=== PATIENT | female | born 1980 | race American Indian/Alaskan Native ===

== ENCOUNTER 2017-11-08 06:54 | Emergency (ER) | payer OTHER ==
[2017-11-08 06:55] VITALS: BMI 32.5
[2017-11-08 07:15] VITALS: BP 136/83; PULSE 70; RESP 17; TEMP 98.2; O2SAT 96
--- NOTE | 2017-11-08 07:52 | ED PDOC ---
Arrival/HPI - General Chief Complaint: Lower Extremity Problem/Injury Time Seen by Provider: 11/08/17 07:15 Historian: Patient - History of Present Illness Narrative History of Present Illness (Text): 11/08/17 07:46 37 year old female, with past medical history of menometrorhagia, uterine fibroids and colitis, presents to the Emergency department complaining of right foot discomfort and swelling since 3 days. Patient states worsening discomfort with movement of the first two toes, making ambulation difficult. Patient worries, discomfort may have been secondary to her work-out exercises but denies any trauma to the area. 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 Patient denies any fever, chills, nausea, vomiting, diarrhea, abdominal pain, chest pain, shortness of breath, or any other complaints. Patient presents to the Emergency department for medical evaluation. PMD: Dr. Barrett Time/Duration: < week (3 days) Symptom Onset: Gradual Symptom Course: Unchanged Quality: Aching Past Medical History - Provider Review Nursing Documentation Reviewed: Yes - Past History Past History: Non-Contributing - Infectious Disease Hx of Infectious Diseases: None - Tetanus Immunization Tetanus Immunization: Unknown - Cardiac Hx Cardiac Disorders: No - Pulmonary Hx Respiratory Disorders: No - Neurological Hx Neurological Disorder: No - HEENT Hx HEENT Disorder: No - Renal Hx Renal Disorder: No - Endocrine/Metabolic Hx Endocrine Disorders: No - Hematological/Oncological Hx Blood Disorders: Yes Hx Anemia: Yes - Integumentary Hx Dermatological Disorder: No - Musculoskeletal/Rheumatological Hx Musculoskeletal Disorders: No - Gastrointestinal Hx Gastrointestinal Disorders: Yes Hx Colitis: Yes - Genitourinary/Gynecological Hx Genitourinary Disorders: No - Psychiatric Hx Emotional Abuse: No Hx Physical Abuse: No Hx Substance Use: No - Surgical History Other/Comment: REMOVAL OF CYST ON THE VOCAL CORDS. FIBROID REMOVAL 11/2015 - Anesthesia Hx Anesthesia: Yes Hx Anesthesia Reactions: No Hx Malignant Hyperthermia: No - Suicidal Assessment Feels Threatened In Home Enviroment: No Family/Social History - Physician Review Nursing Documentation Reviewed: Yes Family/Social History: No Known Family HX Smoking Status: Former Smoker Hx Alcohol Use: Yes (SOCIALLY) Hx Substance Use: No Hx Substance Use Treatment: No Allergies/Home Meds Allergies/Adverse Reactions: Allergies No Known Allergies Allergy (Verified 11/09/15 11:25) Home Medications: Home Meds Medication Instructions Recorded Confirmed Ferrous Sulfate [Ferosul] 325 mg PO QOTHERDAY 11/08/17 11/08/17 Review of Systems - Physician Review All systems were reviewed & negative as marked: Yes - Review of Systems Constitutional: Normal. absent: Fevers Respiratory: Normal. absent: SOB Cardiovascular: Normal. absent: Chest Pain Gastrointestinal: Normal. absent: Abdominal Pain, Nausea, Vomiting Musculoskeletal: Other (right foot discomfort and swelling) Physical Exam Vital Signs Reviewed: Yes Vital Signs Temp Pulse Resp BP Pulse Ox 11/08/17 07:12 98.2 F 70 17 136/83 96 Temperature: Afebrile Blood Pressure: Normal Pulse: Regular Respiratory Rate: Normal Appearance: Positive for: Well-Appearing, Non-Toxic, Comfortable Pain Distress: None Mental Status: Positive for: Alert and Oriented X 3 - Systems Exam Head: Present: Atraumatic, Normocephalic Pupils: Present: PERRL Extroacular Muscles: Present: EOMI Conjunctiva: Present: Normal Neck: Present: Normal Range of Motion Respiratory/Chest: Present: Clear to Auscultation, Good Air Exchange. No: Respiratory Distress, Accessory Muscle Use Cardiovascular: Present: Regular Rate and Rhythm, Normal S1, S2. No: Murmurs Abdomen: No: Tenderness, Distention, Peritoneal Signs Upper Extremity: Present: Normal Inspection. No: Cyanosis, Edema Lower Extremity: Present: NORMAL PULSES, Normal ROM, Tenderness (tenderness on plantar surface of right foot, increased upon dorsiflexion of the foot. No warmth. No tenderness or swelling noted on right ankle.), Neurovascularly Intact. No: Edema, Swelling, Deformity Neurological: Present: GCS=15, CN II-XII Intact, Speech Normal Skin: Present: Warm, Dry, Normal Color. No: Rashes Psychiatric: Present: Alert, Oriented x 3, Normal Insight, Normal Concentration Medical Decision Making ED Course and Treatment: 11/08/17 07:55 Impression: 37 year old female presents to the Emergency department for right foot discomfort and swelling. Differential Diagnosis included but are not limited to: plantar fasciitis vs. bone spur Plan: -- X-ray of Right foot -- Motrin -- Reassess and disposition Prior Visits: Notes and results from previous visits were reviewed. Progress Notes: Patient's foot was wrapped in an claribel wrap. She was given Motrin Rx for pain. She was explained that the xray showed no fractures. She was told that she should rest her foot and take Motrin to help improve inflammation. She will return to the ED if symptoms worsen or any other concern. - RAD Interpretation Radiology Orders: 11/08/17 07:46 FOOT RIGHT 3 VIEWS ROUTINE [RAD] Stat Clod Puller: Radiologist - Medication Orders Current Medication Orders: Discontinued Medications Ibuprofen (Motrin Tab) 600 mg PO STAT STA Stop: 11/08/17 07:47 Last Admin: 11/08/17 07:59 Dose: 600 mg MAR Pain/Vitals Document 11/08/17 07:59 EWO (Rec: 11/08/17 08:01 EWO [id number]) Pain Reassessment Is This A Pain ReAssessment? No Sleep Is patient sleeping during reassessment? No Presence of Pain Presence of Pain Yes Pain Scale Used Pain Scale Used Numeric Location Left, Right or Bilateral Right Pain Location Body Site Foot Description Intermittent Intensity 5 Scale Used Numeric - Scribe Statement The provider has reviewed the documentation as recorded by the Scribe Teresa Sena. All medical record entries made by the Scribe were at my direction and personally dictated by me. I have reviewed the chart and agree that the record accurately reflects my personal performance of the history, physical exam, medical decision making, and the department course for this patient. I have also personally directed, reviewed, and agree with the discharge instructions and disposition. Disposition/Present on Arrival - Present on Arrival Any Indicators Present on Arrival: No History of DVT/PE: No History of Uncontrolled Diabetes: No Urinary Catheter: No History of Decub. Ulcer: No History Surgical Site Infection Following: None - Disposition Have Diagnosis and Disposition been Completed?: Yes Diagnosis: Plantar fasciitis of right foot Disposition: HOME/ ROUTINE Disposition Time: 08:25 Patient Plan: Discharge Condition: IMPROVED Discharge Instructions (ExitCare): Heel Pain (Caused by Plantar Fasciitis) (DC) , Plantar Fasciitis Exercises Additional Instructions: NATA KLEIN, thank you for letting us take care of you today. Your provider was Figueroa Calloway DO and you were treated for Plantar Fascitis. The emergency medical care you received today was directed at your acute symptoms. If you were prescribed any medication, please fill it and take as directed. It may take several days for your symptoms to resolve. Return to the Emergency Department if your symptoms worsen, do not improve, or if you have any other problems. Please contact your doctor or call one of the physicians/clinics you have been referred to that are listed on the Patient Visit Information form that is included in your discharge packet. Bring any paperwork you were given at discharge with you along with any medications you are taking to your follow up visit. Our treatment cannot replace ongoing medical care by a primary care provider outside of the emergency department. Thank you for allowing the [facility] team to be part of your care today. If you had an X-Ray or CT scan: A Radiologist will review the ED reading if any change in treatment is needed we will contact you. If you had a blood, urine, or wound culture: It will take several days for the results, if any change in treatment is needed we will contact you. If you had an STI test: It will take 48 hours for the results. Please call after 1 week if you have not heard back. Prescriptions: Ibuprofen [Motrin] 600 mg PO Q6 PRN #30 tab PRN Reason: Pain, Moderate (4-7) Referrals: George Barrett DO [Family Provider] - Follow up with primary Aneesh Calderón DPM [Staff Provider] - Follow up with primary Forms: [employer] (Ukrainian), WORK NOTE
--- NOTE | 2017-11-08 10:15 | RAD ---
Date of service: 11/08/2017 PROCEDURE: Right Foot Radiographs. HISTORY: foot pain r/o fx COMPARISON: None. FINDINGS: BONES: Bone alignment and mineralization are normal. There is no acute displaced fracture or bone destruction. JOINTS: Normal. SOFT TISSUES: Normal. OTHER FINDINGS: None. IMPRESSION: No acute fracture or dislocation.
== END 2017-11-08 08:32 | disposition home or self-care (01) ==
LOC: ED 06:54
DX: M72.2 Plantar fascial fibromatosis (principal); Z87.891 Personal history of nicotine dependence

== ENCOUNTER 2018-01-11 11:16 | Emergency (ER) | payer OTHER ==
--- NOTE | 2018-01-11 12:39 | ED PDOC ---
Arrival/HPI - General Time Seen by Provider: 01/11/18 12:28 - History of Present Illness Narrative History of Present Illness (Text): 37 y/o F c PMHx Bartholin gland abscesses p/w R sided pelvic swelling and pain, similar to previous Bartholin gland abscesses. Patient states has had drained before never with catheter. Denies fever, chills, chest pain, dyspnea, nausea, vomiting, diarrhea, dysuria. [facility] Past Medical History - Past History Past History: Non-Contributing - Infectious Disease Hx of Infectious Diseases: None - Tetanus Immunization Tetanus Immunization: Unknown - Cardiac Hx Cardiac Disorders: No - Pulmonary Hx Respiratory Disorders: No - Neurological Hx Neurological Disorder: No - HEENT Hx HEENT Disorder: No - Renal Hx Renal Disorder: No - Endocrine/Metabolic Hx Endocrine Disorders: No - Hematological/Oncological Hx Blood Disorders: Yes Hx Anemia: Yes - Integumentary Hx Dermatological Disorder: No - Musculoskeletal/Rheumatological Hx Musculoskeletal Disorders: No - Gastrointestinal Hx Gastrointestinal Disorders: Yes Hx Colitis: Yes - Genitourinary/Gynecological Hx Genitourinary Disorders: No - Psychiatric Hx Emotional Abuse: No Hx Physical Abuse: No Hx Substance Use: No - Surgical History Other/Comment: REMOVAL OF CYST ON THE VOCAL CORDS. FIBROID REMOVAL 11/2015 - Anesthesia Hx Anesthesia: Yes Hx Anesthesia Reactions: No Hx Malignant Hyperthermia: No - Suicidal Assessment Feels Threatened In Home Enviroment: No Family/Social History Family/Social History: No Known Family HX Smoking Status: Former Smoker Hx Alcohol Use: Yes (SOCIALLY) Hx Substance Use: No Hx Substance Use Treatment: No Allergies/Home Meds Allergies/Adverse Reactions: Allergies No Known Allergies Allergy (Verified 11/09/15 11:25) Home Medications: Home Meds Medication Instructions Recorded Confirmed Ferrous Sulfate [Ferosul] 325 mg PO QOTHERDAY 11/08/17 11/08/17 Review of Systems - Physician Review All systems were reviewed & negative as marked: Yes - Review of Systems Constitutional: absent: Fevers Cardiovascular: absent: Chest Pain Physical Exam - Physical Exam Narrative Physical Exam (Text): Gen: NAD Head: NC/AT Eyes: PERRL ENT: MMM Neck: Supple Chest: No tenderness CV: Regular rate Lungs: CTA b/l Abd: Soft, NT : R sided labial mass, tender, erythematous, fluctuant. Back: No CVA tenderness Extremities: No edema or tenderness Skin: No rash Neuro: Alert, no focal deficit Vital Signs Temp Pulse Resp BP Pulse Ox 01/11/18 13:10 75 18 131/74 100 01/11/18 12:56 78 18 135/78 100 01/11/18 12:48 97.9 F Medical Decision Making ED Course and Treatment: Instructed to f/u with DECORATING INSTRUCTOR for further management, and instructed to be seen in 2-4 days for wound check. Otherwise, continue sitz baths, antibiotics. - Medication Orders Current Medication Orders: Discontinued Medications Acetaminophen (Tylenol 325mg Tab) 975 mg PO STAT STA Stop: 01/11/18 12:41 Last Admin: 01/11/18 13:13 Dose: 975 mg MAR Pain/Vitals Document 01/11/18 13:13 BRENTON (Rec: 01/11/18 13:14 BRENTON [id number]) Pain Reassessment Is This A Pain ReAssessment? Yes Presence of Pain Presence of Pain Yes Pain Scale Used Pain Scale Used Numeric Location Pain Location Body Site vagina Intensity 10 Scale Used Numeric Ketorolac Tromethamine (Toradol) 60 mg IM STAT STA Stop: 01/11/18 12:41 Last Admin: 01/11/18 13:14 Dose: 60 mg MAR Pain Assessment Document 01/11/18 13:14 BRENTON (Rec: 01/11/18 13:15 BRENTON [id number]) Pain Reassessment Is this a pain reassessment? Yes Presence of Pain Presence of Pain Yes Pain Scale Used Pain Scale Used Numeric Description Description Pressure Intensity of Pain at present 10 IM Administration Charges Document 01/11/18 13:14 BRENTON (Rec: 01/11/18 13:15 BRENTON [id number]) Injection Site MAR Injection Site Left Gluteus Abelardo Charges for Administration # of IM Administrations 1 Lidocaine HCl (Lidocaine 2% 20ml Vial) 2 ml IJ STAT STA Stop: 01/11/18 12:41 Procedures - Incision and Drainage Site: right labia Blade Size: 11 I & D Procedure: betadine prep Progress: lidocaine 2% locally. Tape inserted, fell out, patient states never stays in. Disposition/Present on Arrival - Present on Arrival Any Indicators Present on Arrival: No History of DVT/PE: No History of Uncontrolled Diabetes: No Urinary Catheter: No History Surgical Site Infection Following: None - Disposition Have Diagnosis and Disposition been Completed?: Yes Diagnosis: Bartholin gland cyst Disposition: HOME/ ROUTINE Disposition Time: 15:08 Patient Plan: Discharge Patient Problems: Current Active Problems Problem Status Onset Bartholin gland cyst Acute Condition: STABLE Discharge Instructions (ExitCare): Bartholin's Gland Cyst Prescriptions: Cefixime [Suprax] 400 mg PO QID #28 cap Clindamycin [Cleocin] 300 mg PO QID #28 cap Referrals: Paulie Goldsmith MD [Staff Provider] - Follow up with primary Forms: WORK NOTE
[2018-01-11] MEDS ORDERED: Lidocaine 2% Inj (20ml) IJ STA (12:40)
[2018-01-11 12:48] VITALS: BMI 37.8
[2018-01-11 12:56] VITALS: RESP 18; O2SAT 100
[2018-01-11 12:59] VITALS: TEMP 97.9
[2018-01-11 13:21] VITALS: BP 131/74; PULSE 75
[2018-01-11] MEDS ORDERED: Lidocaine PF 2% (5 ml) Inj (For Cardiac Arrhy) ONE (14:38)
== END 2018-01-11 15:31 | disposition home or self-care (01) ==
LOC: ED 11:16
DX: N75.0 Cyst of Bartholin's gland (principal)
CPT/HCPCS: 56420; 87070; 96372; 99281; J1885

== ENCOUNTER 2018-02-15 19:25 | Emergency (ER) | payer SELFPAY ==
[2018-02-15 19:58] VITALS: BMI 39.4
--- NOTE | 2018-02-15 20:45 | ED PDOC ---
Arrival/HPI - History of Present Illness Narrative History of Present Illness (Text): 02/15/18 20:42 This is a 47 year old female with PMH of menometrorrhagia, uterine fibroids, colitis (3 years ago), bartholin galdn cysts who presents with 2 day history of lower abdominal pain. Pain started last night, when she took Ibuprofen and smoked marijuana to help her sleep. Pt woke up and went to work today, but states that it worsened tonight and caused her to come in. Pain is described as right lower abdominal, inttermittent, sharp, "rolling," that radiates across the lower abdomen to just below the belly button. Pain is worse with sitting and laying down, alleviated with standing up. Pt denies fever, chills, chest pain, sob, n/v/d, urinary complaints, vaginal bleeding/pain/discharge, recent travel, new foods, recent tampon use. Pt last had unprotected sex with her boyfriend on tuesday 02/13, which was not painful. Pt states that she should not be eating popcorn with butter because of her history of colitis, but had some 2 days ago. PMD: Bj Barrett PSYCHOTHERAPIST SOCIAL WORKER: Jeannine PMH: menometrorrhagia with anemia, uterine fibroids, colitis (3 years ago), bartholin cysts and glands PSH: fibroid removal 2 years ago Meds: L. Acidophillus, Iron pill Allx: NKDA Hx: (1 miscarriage) Pt's menstrual period ended 02/13, and it was normal. Sexual Hx: unprotected sex with long term care administrator boyfriend of 13 years. Time/Duration: < week Symptom Onset: Sudden Symptom Course: Worsening Quality: Other (sharp) Context: Sitting (worse with), Standing (better with) <Kishor Pelaez - Last Filed: 02/16/18 05:23> <Lorenzo Leahy - Last Filed: 02/16/18 05:46> - General Chief Complaint: Abdominal Pain Time Seen by Provider: 02/15/18 19:57 Past Medical History - Provider Review Nursing Documentation Reviewed: Yes - Past History Past History: Non-Contributing - Infectious Disease Hx of Infectious Diseases: None - Tetanus Immunization Tetanus Immunization: Unknown - Cardiac Hx Cardiac Disorders: No - Pulmonary Hx Respiratory Disorders: No - Neurological Hx Neurological Disorder: No - HEENT Hx HEENT Disorder: No - Renal Hx Renal Disorder: No - Endocrine/Metabolic Hx Endocrine Disorders: No - Hematological/Oncological Hx Blood Disorders: Yes Hx Anemia: Yes - Integumentary Hx Dermatological Disorder: No - Musculoskeletal/Rheumatological Hx Musculoskeletal Disorders: No - Gastrointestinal Hx Gastrointestinal Disorders: Yes Hx Colitis: Yes - Genitourinary/Gynecological Hx Genitourinary Disorders: No - Psychiatric Hx Psychophysiologic Disorder: No Hx Substance Use: No - Surgical History Other/Comment: REMOVAL OF CYST ON THE VOCAL CORDS. FIBROID REMOVAL 11/2015 - Anesthesia Hx Anesthesia: Yes Hx Anesthesia Reactions: No Hx Malignant Hyperthermia: No - Suicidal Assessment Feels Threatened In Home Enviroment: No <Kishor Pelaez - Last Filed: 02/16/18 05:23> Family/Social History - Physician Review Nursing Documentation Reviewed: Yes Family/Social History: Unknown Family HX Smoking Status: Former Smoker Hx Alcohol Use: Yes (SOCIALLY) Hx Substance Use: No Hx Substance Use Treatment: No <Kishor Pelaez - Last Filed: 02/16/18 05:23> Allergies/Home Meds <Kishor Pelaez - Last Filed: 02/16/18 05:23> <Lorenzo Leahy - Last Filed: 02/16/18 05:46> Allergies/Adverse Reactions: Allergies No Known Allergies Allergy (Verified 02/15/18 19:57) Home Medications: Home Meds Medication Instructions Recorded Confirmed Ferrous Sulfate [Ferosul] 325 mg PO QOTHERDAY 11/08/17 02/15/18 Review of Systems - Review of Systems Constitutional: Fatigue Eyes: Normal ENT: Normal Respiratory: Normal Cardiovascular: Normal Gastrointestinal: Abdominal Pain Genitourinary Female: Normal Musculoskeletal: Normal Skin: Normal Neurological: Normal <Kishor Pelaez - Last Filed: 02/16/18 05:23> Physical Exam Vital Signs Reviewed: Yes Vital Signs Temp Pulse Resp BP Pulse Ox 02/15/18 19:56 98.5 F 99 H 18 120/80 97 Temperature: Afebrile Blood Pressure: Normal Pulse: Regular Respiratory Rate: Normal Appearance: Positive for: Uncomfortable Pain Distress: Mild Mental Status: Positive for: Alert and Oriented X 3 - Systems Exam Head: Present: Atraumatic, Normocephalic Extroacular Muscles: Present: EOMI Mouth: Present: Moist Mucous Membranes Respiratory/Chest: Present: Clear to Auscultation. No: Respiratory Distress, Wheezes, Rhonchi, Tachypneic Cardiovascular: Present: Regular Rate and Rhythm, Normal S1, S2 Abdomen: Present: Tenderness (moderate tenderness from just below the umbilicus to the RLQ), Normal Bowel Sounds. No: Rebound, Guarding Upper Extremity: Present: Normal Inspection, NORMAL PULSES Lower Extremity: Present: Normal Inspection, NORMAL PULSES. No: CALF TENDERNESS Neurological: Present: GCS=15 Skin: Present: Warm, Dry Psychiatric: Present: Alert, Oriented x 3 <Kishor Pelaez - Last Filed: 02/16/18 05:23> Vital Signs Temp Pulse Resp BP Pulse Ox 02/16/18 01:20 98.2 F 78 138/89 99 02/15/18 23:40 89 17 158/77 H 99 02/15/18 19:56 98.5 F 99 H 18 120/80 97 <Lorenzo Leahy - Last Filed: 02/16/18 05:46> Medical Decision Making ED Course and Treatment: 37 year old female with RLQ abdominal pain. Urine preg is negative. CBC, CMP, UA, Abdominal CT with IV contrast, Toradol 30 mg IVP for pain. Reassessment Condition: Improved - Lab Interpretations I have reviewed the lab results: Yes (mild leukocytosis, anemia which is at baseline when compared to prior value) - RAD Interpretation Narrative RAD Interpretations (Text): CLINICAL HISTORY: Pain. Colitis. TECHNIQUE: Multiple axial, coronal, sagittal CT images were obtained through the abdomen and pelvis after administration of intravenous contrast material. OMNI 300 100 ml. DLP 1048.66. COMMENTS: The liver is of uniform attenuation without mass or defect. There is no intra or extrahepatic biliary ductal dilatation. The spleen is normal. The gallbladder is within normal limits. The pancreas is of normal contour and attenuation characteristics. There is no evidence of adrenal mass. Both kidneys demonstrate prompt and equal nephrograms. The kidneys are normal i n size, shape and configuration. There is no evidence of renal or ureteral mass. No renal or ureteral calculi are identified. There is no hydroureter or hydronephrosis. No evidence for appendicitis. There are fluid filled thick wall loops of ileum present consistent with ileitis. Infectious and inflammatory etiologies are considered. Consider consultation with GI service. No evidence for small or large bowel obstruction. There is no evidence of abdominal ascites or lymphadenopathy. The uterus is bulky and enlarged contains several masses consistent with fibroids, the largest located at the fundus partially exophytic measuring 7 x 5 cm. There is no evidence of intrinsic or extrinsic bladder mass. There is no pelvic lymphadenopathy. Small amount of fluid present in the pelvic cul-de-sac. Cystic lesion is present in the right perineum may compatible with Bartholin gla nd cyst measures 3 x 2.2 cm. Images of the lung bases show no evidence of pleural or parenchymal mass. There are no pleural effusions. The bony structures are free of lytic or blastic lesions. IMPRESSION: 1. Ileitis. Infectious and inflammatory etiologies are considered. Consider consultation with GI service. 2. The uterus is bulky and enlarged contains several masses consistent with fibroids. 3. Small amount of fluid present in the pelvic cul-de-sac. 4. Right Bartholin gland cyst. Electronically signed on Feb 15, 2018 11:42:55 PM EDT by: Hemal Contreras M.D., LOIS Certified By [facility] & [facility] Fellowship Trained MRI and CT Specialist Dry Wall Installer: Radiologist <Kishor Pelaez - Last Filed: 02/16/18 05:23> - Lab Interpretations Lab Results: 02/15/18 21:00 02/15/18 21:00 Lab Results 02/15/18 21:00: Sodium 138, Potassium 4.2, Chloride 106, Carbon Dioxide 24, Anion Gap 13, BUN 10, Creatinine 0.7, Est GFR ( Amer) > 60, Est GFR (Non- Af Amer) > 60, Random Glucose 102, Calcium 9.3, Phosphorus 3.5, Magnesium 1.8, Total Bilirubin 0.3, AST 30, ALT 20, Alkaline Phosphatase 81, Total Protein 7.6, Albumin 3.9, Globulin 3.7, Albumin/Globulin Ratio 1.0 L 02/15/18 21:00: Urine Color Light yellow, Urine Appearance Clear, Urine pH 6.5, Ur Specific [place] 1.010, Urine Protein Trace H, Urine Glucose (UA) Negative, Urine Ketones Negative, Urine Blood Negative, Urine Nitrate Negative, Urine Bilirubin Negative, Urine Urobilinogen 0.2, Ur Leukocyte Esterase Negative, Urine RBC Negative, Urine WBC Negative, Ur Epithelial Cells 4 - 5, Urine Bact eria Neg, Urine HCG, Qual Negative 02/15/18 21:00: WBC 12.0 H D, RBC 4.49, Hgb 10.3 L, Hct 33.3 L, MCV 74.2 L, MCH 22.9 L, MCHC 30.9 L, RDW 17.2 H, Plt Count 382, MPV 9.6, Gran % 67.8, Lymph % (Auto) 22.8, [place] % (Auto) 7.1 H, Eos % (Auto) 1.9, Baso % (Auto) 0.4, Gran # 8.15 H, Lymph # (Auto) 2.7, [place] # (Auto) 0.9 H, Eos # (Auto) 0.2, Baso # (Auto) 0.05 - RAD Interpretation Radiology Orders: 02/15/18 20:45 ABD & PELVIS IV CONTRAST ONLY [CT] Stat - Medication Orders Current Medication Orders: Discontinued Medications Ketorolac Tromethamine (Toradol) 30 mg IVP STAT STA Stop: 02/15/18 20:46 Last Admin: 02/15/18 21:00 Dose: 30 mg MAR Pain Assessment Document 02/15/18 21:00 IT (Rec: 02/15/18 21:00 IT [id number]) Pain Reassessment Is this a pain reassessment? No IVP Administration Document 02/15/18 21:00 IT (Rec: 02/15/18 21:00 IT [id number]) Charges for Administration # of IVP Administrations 1 <Loernzo Leahy - Last Filed: 02/16/18 05:46> - Scribe Statement The provider has reviewed the documentation as recorded by the Scribe Patient Seen with Resident: In agreement with resident note which contains more details about the patient. Patient seen and evaluated with resident. Came up with plan and treatment together. <Lorenzo Leahy - Last Filed: 02/16/18 05:46> Disposition/Present on Arrival - Present on Arrival Any Indicators Present on Arrival: No History of DVT/PE: No History of Uncontrolled Diabetes: No Urinary Catheter: No History of Decub. Ulcer: No History Surgical Site Infection Following: None - Disposition Have Diagnosis and Disposition been Completed?: Yes Disposition Time: 00:31 Patient Plan: Discharge <BenignoKishor - Last Filed: 02/16/18 05:23> <Lorenzo Leahy - Last Filed: 02/16/18 05:46> - Disposition Diagnosis: Ileitis, Abdominal pain Disposition: HOME/ ROUTINE Condition: GOOD Discharge Instructions (ExitCare): Inflammatory Bowel Disease (DC), Colic (DC) Prescriptions: Ciprofloxacin [Cipro] 500 mg PO BID #20 tab Ondansetron ODT [Zofran ODT] 4 mg PO PRN PRN #6 odt PRN Reason: Nausea/Vomiting Referrals: Saravanan Pedraza MD [Staff Provider] - Follow up with primary George Barrett DO [Staff Provider] - Follow up with primary Forms: [employer] (Uzbek), WORK NOTE
[2018-02-15 21:08] LABS: BASO # 0.05 K/mm3 (0.0-2.0); BASO % 0.4 % (0.0-3.0); EOS # 0.2 (0.0-0.7); EOS % 1.9 % (1.5-5.0); GRAN # 8.15 (1.4-6.5); GRAN % 67.8 % (50.0-68.0); HEMOGLOBIN 10.3 g/dL (12.0-16.0); LYMPH # 2.7 (1.2-3.4); LYMPH % 22.8 % (22.0-35.0); MEAN CELL VOLUME 74.2 fl (80.0-105.0); MEAN CORPUSCULAR HEMOGLOBIN 22.9 pg (25.0-35.0); MEAN CORPUSCULAR HGB CONC 30.9 g/dl (31.0-37.0); MEAN PLATELET VOLUME 9.6 fl (7.0-11.0); MONO # 0.9 (0.1-0.6); MONO % 7.1 % (1.0-6.0); RBC 4.49 10^6/uL (3.5-6.1); RED CELL DISTRIBUTION WIDTH 17.2 % (11.5-14.5)
[2018-02-15 21:09] LABS: PH,URINE 6.5 (4.7-8.0); URINE BILIRUBIN NEGATIVE (NEGATIVE); URINE BLOOD NEGATIVE (NEGATIVE); URINE GLUCOSE (UA) NEGATIVE (NEGATIVE); URINE LEUKOCYTE ESTERASE NEGATIVE Leu/uL (NEGATIVE); URINE PROTEIN TRACE mg/dL (<30 mg/dL); URINE UROBILINOGEN 0.2 E.U./dL (<1 E.U./dL)
[2018-02-15 21:10] LABS: URINE APPEARANCE CLEAR (CLEAR); URINE COLOR LIGHT YELLOW (YELLOW)
[2018-02-15 21:12] LABS: HCG,QUALITATIVE URINE NEGATIVE (NEGATIVE)
[2018-02-15 21:14] LABS: URINE RBC NEGATIVE /hpf (0-2)
[2018-02-15 21:15] LABS: URINE BACTERIA NEG (NEG); URINE WBC NEGATIVE /hpf (0-6)
[2018-02-15 21:35] LABS: ALBUMIN 3.9 g/dL (3.0-4.8); ALT/SGPT 20 U/L (7-56); AST/SGOT 30 U/L (14-36); BLOOD UREA NITROGEN 10 mg/dL (7-21); CALCIUM 9.3 mg/dL (8.4-10.5); GFR NON-AFRICAN AMERICAN > 60
[2018-02-15] MEDS ORDERED: Iohexol 300 100 ML IJ ONE (22:30)
[2018-02-15 23:40] VITALS: RESP 17; O2SAT 99
[2018-02-16 01:21] VITALS: BP 138/89; PULSE 78; TEMP 98.2
--- NOTE | 2018-02-16 09:03 | CT ---
Date of service: 02/15/2018 PROCEDURE: CT Abdomen and Pelvis with contrast HISTORY: abdominal pain, hx of colitis COMPARISON: 04/02/2015 TECHNIQUE: Contrast dose: 100 cc of Omni 300 Radiation dose: Total exam DLP = 1048.66 mGy-cm. This CT exam was performed using one or more of the following dose reduction techniques: Automated exposure control, adjustment of the mA and/or kV according to patient size, and/or use of iterative reconstruction technique. FINDINGS: LOWER THORAX: Unremarkable. LIVER: Unremarkable. No gross lesion or ductal dilatation. GALLBLADDER AND BILE DUCTS: Unremarkable. PANCREAS: Unremarkable. No gross lesion or ductal dilatation. SPLEEN: Unremarkable. ADRENALS: Unremarkable. No mass. KIDNEYS AND URETERS: Unremarkable. No hydronephrosis. No solid mass. VASCULATURE: Unremarkable. No aortic aneurysm. No aortic atherosclerotic calcification or mural plaque present. BOWEL: Unremarkable. No obstruction. No gross mural thickening. APPENDIX: Normal appendix. PERITONEUM: Unremarkable. No free fluid. No free air. LYMPH NODES: Unremarkable. No enlarged lymph nodes. BLADDER: Unremarkable. REPRODUCTIVE: Large fibroids are now seen which were not present on the study of 2014. There is a 6 cm hypodense fibroid in the uterine fundus. There is a 3.8 cm exophytic fibroid which invaginates the superior border of the bladder. There is a 2 by 3 cm Bartholin cyst in the right side of the labia. This is similar in size to the previous study BONES: No acute fracture. OTHER FINDINGS: The report concurs with the preliminary [facility] report IMPRESSION: Large fibroids are now seen which were not present on the study of 2014. There is a 6 cm hypodense fibroid in the uterine fundus. There is a 3.8 cm exophytic fibroid which invaginates the superior border of the bladder. No acute intra-abdominal findings
== END 2018-02-16 00:40 | disposition home or self-care (01) ==
LOC: ED 19:25
DX: K52.9 Noninfective gastroenteritis and colitis, unspecified (principal)
CPT/HCPCS: 74177; 80053; 81001; 83735; 84100; 84703; 85025; 96374; 99284; J1885; Q9967

== ENCOUNTER 2018-02-17 07:25 | Observation (INO) | payer OTHER ==
--- NOTE | 2018-02-17 07:38 | ED PDOC ---
Arrival/HPI - General Chief Complaint: GI Problem Time Seen by Provider: 02/17/18 07:38 Historian: Patient - History of Present Illness Narrative History of Present Illness (Text): 02/17/18 07:56 A 47 year old female, whose past medical history includes menometrorrhagia, uterine fibroids, colitis, bartholin galdn cysts, presents to the emergency department complaining of lower abdominal pain starting this morning. Patient reports she was last seen here 02/15/2018 for similar complaint, which at the time onset of abdominal pain was 2 days. Patient was given Toradol here in the ER, which helped with the pain. Also, she states she was prescribed Cipro and medication for nausea. Patient has been feeling fine with taking the medications since discharged from the ER. However, patient states earlier this morning she began experiencing the same lower abdominal pain again and had 2 episodes of vomiting, which was all the food she had eaten last night. Patient denies any fever, chills, dysuria, vaginal discharge/bleeding, or any other complaints at this time. Denies any history of diabetes and hypertension; as well as no history of smoking/EtOH abuse. Patient also mentions she is allergic to the IV contrast that she was given on 02/15 night, resulting in rash all over her arm. PMD: Dr. Barrett Time/Duration: Other (earlier this morning) Past Medical History - Provider Review Nursing Documentation Reviewed: Yes - Past History Past History: Non-Contributing - Infectious Disease Hx of Infectious Diseases: None - Tetanus Immunization Tetanus Immunization: Unknown - Cardiac Hx Cardiac Disorders: No - Pulmonary Hx Respiratory Disorders: No - Neurological Hx Neurological Disorder: No - HEENT Hx HEENT Disorder: No - Renal Hx Renal Disorder: No - Endocrine/Metabolic Hx Endocrine Disorders: No - Hematological/Oncological Hx Blood Disorders: Yes Hx Anemia: Yes - Integumentary Hx Dermatological Disorder: No - Musculoskeletal/Rheumatological Hx Musculoskeletal Disorders: No - Gastrointestinal Hx Gastrointestinal Disorders: Yes Hx Colitis: Yes - Genitourinary/Gynecological Hx Genitourinary Disorders: No - Psychiatric Hx Psychophysiologic Disorder: No Hx Substance Use: No - Surgical History Other/Comment: REMOVAL OF CYST ON THE VOCAL CORDS. FIBROID REMOVAL 11/2015 - Anesthesia Hx Anesthesia: Yes Hx Anesthesia Reactions: No Hx Malignant Hyperthermia: No - Suicidal Assessment Feels Threatened In Home Enviroment: No Family/Social History - Physician Review Nursing Documentation Reviewed: Yes Family/Social History: No Known Family HX Smoking Status: Former Smoker Hx Alcohol Use: Yes (SOCIALLY) Hx Substance Use: No Hx Substance Use Treatment: No Allergies/Home Meds Allergies/Adverse Reactions: Allergies IV contrast Allergy (Uncoded 02/17/18 07:37) RASH Home Medications: Home Meds Medication Instructions Recorded Confirmed Ferrous Sulfate [Ferosul] 325 mg PO QOTHERDAY 11/08/17 02/17/18 Review of Systems - Physician Review All systems were reviewed & negative as marked: Yes - Review of Systems Constitutional: absent: Fevers, Night Sweats Gastrointestinal: Abdominal Pain (lower region), Vomiting (2 episodes this morning.) Genitourinary Female: absent: Dysuria, Vaginal Bleeding, Vaginal Discharge Physical Exam Vital Signs Reviewed: Yes Vital Signs Temp Pulse Resp BP Pulse Ox 02/17/18 07:32 98.1 F 85 18 135/72 100 Temperature: Afebrile Blood Pressure: Normal Pulse: Regular Respiratory Rate: Normal Appearance: Positive for: Well-Appearing, Non-Toxic, Uncomfortable Pain Distress: None Mental Status: Positive for: Alert and Oriented X 3 - Systems Exam Head: Present: Atraumatic, Normocephalic Pupils: Present: PERRL Extroacular Muscles: Present: EOMI Conjunctiva: Present: Normal Mouth: Present: Moist Mucous Membranes Neck: Present: Normal Range of Motion Respiratory/Chest: Present: Clear to Auscultation, Good Air Exchange. No: Respiratory Distress, Accessory Muscle Use Cardiovascular: Present: Regular Rate and Rhythm, Normal S1, S2. No: Murmurs Abdomen: Present: Tenderness (diffused tenderness to RLQ.). No: Distention, Normal Bowel Sounds (decreased bowel sounds), Peritoneal Signs, Rebound Back: Present: Normal Inspection. No: CVA Tenderness Upper Extremity: Present: Normal Inspection. No: Cyanosis, Edema Lower Extremity: Present: Normal Inspection. No: Edema Neurological: Present: GCS=15, CN II-XII Intact, Speech Normal Skin: Present: Warm, Dry, Normal Color. No: Rashes Psychiatric: Present: Alert, Oriented x 3, Normal Insight, Normal Concentration Medical Decision Making ED Course and Treatment: 02/17/18 08:00 Impression: 37 year old female with lower abdominal pain and had 2 episodes of vomiting earlier this morning. Physical exam shows diffuse tenderness to the RLQ with no rebound and decreased bowel sounds; no other acute findings on examination. Plan: -- Chest X-ray -- Abdominal X-Ray -- Labs -- Urinalysis -- Zofran -- Toradol -- IV Fluids -- Reassess and disposition Prior Visits: Notes and results from previous visits were reviewed. Patient was last seen in the emergency department on 02/15/2018 for lower abdominal pain. Patient was discharged home with prescription for Cipro. Progress Notes: - Lab Interpretations I have reviewed the lab results: Yes - Scribe Statement The provider has reviewed the documentation as recorded by the Katibe Jose Palomares Provider Scribe Attestation: All medical record entries made by the Scribe were at my direction and personally dictated by me. I have reviewed the chart and agree that the record accurately reflects my personal performance of the history, physical exam, medical decision making, and the department course for this patient. I have also personally directed, reviewed, and agree with the discharge instructions and disposition. Disposition/Present on Arrival - Present on Arrival Any Indicators Present on Arrival: No History of DVT/PE: No History of Uncontrolled Diabetes: No Urinary Catheter: No History of Decub. Ulcer: No History Surgical Site Infection Following: None - Disposition Have Diagnosis and Disposition been Completed?: Yes Diagnosis: Vomiting, Colitis Disposition: HOSPITALIZED Disposition Time: 08:48 Patient Plan: Admission Condition: STABLE Forms: [employer] (Persian)
[2018-02-17] MEDS ORDERED: Sodium Chloride 0.9% 1,000 ML IV STA (07:52)
[2018-02-17 08:14] LABS: BASO # 0.04 K/mm3 (0.0-2.0); BASO % 0.3 % (0.0-3.0); EOS # 0.2 (0.0-0.7); EOS % 1.5 % (1.5-5.0); GRAN # 10.88 (1.4-6.5); GRAN % 79.2 % (50.0-68.0); HEMOGLOBIN 10.2 g/dL (12.0-16.0); LYMPH # 1.4 (1.2-3.4); LYMPH % 10.2 % (22.0-35.0); MEAN CELL VOLUME 73.7 fl (80.0-105.0); MEAN CORPUSCULAR HEMOGLOBIN 22.6 pg (25.0-35.0); MEAN CORPUSCULAR HGB CONC 30.6 g/dl (31.0-37.0); MEAN PLATELET VOLUME 9.8 fl (7.0-11.0); MONO # 1.2 (0.1-0.6); MONO % 8.8 % (1.0-6.0); RBC 4.52 10^6/uL (3.5-6.1); RED CELL DISTRIBUTION WIDTH 17.1 % (11.5-14.5); WHITE BLOOD COUNT 13.7 10^3/uL (4.5-11.0)
[2018-02-17 08:22] LABS: ALBUMIN 3.9 g/dL (3.0-4.8); CALCIUM 9.4 mg/dL (8.4-10.5)
[2018-02-17] MEDS: metroNIDAZOLE IV 500 mg/100 ml 500 MG/100 ML BAG IVPB SCH ×3 (09:18→21:26)
[2018-02-17 09:19] VITALS: O2SAT 98
[2018-02-17 09:40] LABS: PH,URINE 6.5 (4.7-8.0); URINE BILIRUBIN NEGATIVE (NEGATIVE); URINE BLOOD NEGATIVE (NEGATIVE); URINE GLUCOSE (UA) NEGATIVE (NEGATIVE); URINE LEUKOCYTE ESTERASE NEGATIVE Leu/uL (NEGATIVE); URINE PROTEIN NEGATIVE mg/dL (<30 mg/dL); URINE UROBILINOGEN 0.2 E.U./dL (<1 E.U./dL)
[2018-02-17] MEDS: Sodium Chloride 0.45% 1,000 ML IV SCH (09:47)
[2018-02-17 09:56] LABS: URINE APPEARANCE CLEAR (CLEAR); URINE COLOR YELLOW (YELLOW)
[2018-02-17] MEDS ORDERED: Ciprofloxacin 200mg/100ml D5W 100 ML IVPB SCH (10:00)
--- NOTE | 2018-02-17 10:35 | CP.PCM.CON ---
History of Present Illness - History of Present Illness History of Present Illness: PGY-4 GI Fellow Consult Note Pt is a 37 yo female with h/o menometrorrhagia, uterine fibroids, Colitis (infectious related in 2014), bartholin cysts presenting with complaint of abd pain, n/v. She states starting 02/14 she began to notice RLQ, intermittent, sharp and "rolling" abd pain that occasionally would radiate across abdomen. Pain better with standing up, worse sitting down and lying down. The next day, she states that she had a somewhat loose brown bowel movement and none since Thursday afternoon. She reports usually qAM bowel movement with formed brown stool prior to this. She presenting to the ED on 02/15, CT revealed uterine fibroids some new/larger. There was also a mixed read on the CT regarding possible ileitis. F/u for GI was placed and she was DCed with ciprofloxacin and symptomatic care. She returned today since overnight she started to have nausea and vomiting consisting of PO intake, denying any bloody or bilious emesis. No BM since Thursday which is atypical for her. She denies any signs of bleeding, dysphagia, weight loss, joint/eye pain, change in vision nor prior endoscopic evaluation. She reports a mild diffuse body rash across her chest after receiving IV contrast. 12 point ROS negative other than stated above MHx: See above SurgHx: Fibroid removal 2 years ago, vocal cord cyst removal Meds: Probiotic and Fe pill FamHx: Denied h/o GI problems SocHx: + MJ, denied tob/EtOH All: IV contrast, NKDA Past Patient History - Infectious Disease Hx of Infectious Diseases: None - Tetanus Immunizations Tetanus Immunization: Unknown - Past Medical History & Family History Past Medical History?: Yes - Past Social History Smoking Status: Former Smoker - CARDIAC Hx Cardiac Disorders: No - PULMONARY Hx Respiratory Disorders: No - NEUROLOGICAL Hx Neurological Disorder: No - HEENT Hx HEENT Problems: No - RENAL Hx Chronic Kidney Disease: No - ENDOCRINE/METABOLIC Hx Endocrine Disorders: No - HEMATOLOGICAL/ONCOLOGICAL Hx Blood Disorders: Yes Hx Anemia: Yes - INTEGUMENTARY Hx Dermatological Problems: No - MUSCULOSKELETAL/RHEUMATOLOGICAL Hx Musculoskeletal Disorders: No - GASTROINTESTINAL Hx Gastrointestinal Disorders: Yes Hx Colitis: Yes - GENITOURINARY/GYNECOLOGICAL Hx Genitourinary Disorders: No - PSYCHIATRIC Hx Psychophysiologic Disorder: No Hx Substance Use: No - SURGICAL HISTORY Other/Comment: REMOVAL OF CYST ON THE VOCAL CORDS. FIBROID REMOVAL 11/2015 - ANESTHESIA Hx Anesthesia: Yes Hx Anesthesia Reactions: No Hx Malignant Hyperthermia: No Meds Allergies/Adverse Reactions: Allergies Allergy/AdvReac Type Severity Reaction Status Date / Time IV contrast Allergy RASH Uncoded 02/17/18 11:55 - Medications Medications: Current Medications Ciprofloxacin (Cipro 200mg/100ml D5w) 100 mls @ 67 mls/hr IVPB Q12 JEAN [facility]RE; Protocol Stop: 02/17/18 11:30 Metronidazole (Flagyl) 500 mg in 100 mls @ 100 mls/hr IVPB Q8 JEAN PIERRE; Protocol Last Admin: 02/17/18 09:18 Dose: 100 mls/hr Sodium Chloride (Sodium Chloride 0.45%) 1,000 mls @ 80 mls/hr IV .[id number] JEAN PIERRE Last Admin: 02/17/18 09:47 Dose: 80 mls/hr Ketorolac Tromethamine (Toradol) 30 mg IVP Q6H PRN PRN Reason: Pain, moderate (4-7) Ondansetron HCl (Zofran Inj) 4 mg IVP Q6H PRN PRN Reason: Nausea/Vomiting Physical Exam - Constitutional Appears: Well, No Acute Distress - Head Exam Head Exam: ATRAUMATIC, NORMAL INSPECTION - Eye Exam Eye Exam: EOMI. absent: Conjunctival injection, Scleral icterus - ENT Exam ENT Exam: Mucous Membranes Moist, Normal External Ear Exam. absent: Mucous Membranes Dry - Respiratory Exam Respiratory Exam: Clear to Auscultation Bilateral, NORMAL BREATHING PATTERN. absent: Accessory Muscle Use, Respiratory Distress - Cardiovascular Exam Cardiovascular Exam: REGULAR RHYTHM, RRR - GI/Abdominal Exam GI & Abdominal Exam: Hypoactive Bowel Sounds, Soft, Tenderness (ttp in RLQ w/o guarding, pain in RLQ when palpating LLQ). absent: Bruit, Diminished Bowel Sounds, Distended, Firm, Guarding, Hernia, Normal Bowel Sounds, Organomegaly, Rebound, Rigid - Rectal Exam Rectal Exam: Deferred - Extremities Exam Extremities exam: Positive for: normal inspection. Negative for: pedal edema - Neurological Exam Neurological exam: Alert, CN II-XII Intact, Oriented x3 - Psychiatric Exam Psychiatric exam: Normal Affect, Normal Mood - Skin Skin Exam: Normal Color, Warm Results - Vital Signs Recent Vital Signs: Last Vital Signs Temp 98.6 F 02/17/18 10:08 Pulse 88 02/17/18 10:08 Resp 18 02/17/18 10:08 BP 132/79 02/17/18 10:08 Pulse Ox 98 02/17/18 10:08 - Labs Result Diagrams: 02/17/18 07:52 02/17/18 07:52 Labs: Laboratory Results - last 24 hr 02/17/18 02/17/18 02/17/18 07:52 07:52 09:15 WBC 13.7 H RBC 4.52 Hgb 10.2 L Hct 33.3 L MCV 73.7 L MCH 22.6 L MCHC 30.6 L RDW 17.1 H Plt Count 364 MPV 9.8 Gran % 79.2 H Lymph % (Auto) 10.2 L [place] % (Auto) 8.8 H Eos % (Auto) 1.5 Baso % (Auto) 0.3 Gran # 10.88 H Lymph # (Auto) 1.4 [place] # (Auto) 1.2 H Eos # (Auto) 0.2 Baso # (Auto) 0.04 Sodium 138 Potassium 4.2 Chloride 107 Carbon Dioxide 21 Anion Gap 13 BUN 16 Creatinine 1.5 H Est GFR ( Amer) 48 Est GFR (Non-Af Amer) 40 Random Glucose 105 Calcium 9.4 Magnesium 1.8 Total Bilirubin 0.8 AST 30 ALT 24 Alkaline Phosphatase 85 Total Protein 7.6 Albumin 3.9 Globulin 3.7 Albumin/Globulin Ratio 1.0 L Lipase 47 Urine Color Yellow Urine Appearance Clear Urine pH 6.5 Ur Specific [place] 1.015 Urine Protein Negative Urine Glucose (UA) Negative Urine Ketones Negative Urine Blood Negative Urine Nitrate Negative Urine Bilirubin Negative Urine Urobilinogen 0.2 Ur Leukocyte Esterase Negative Assessment & Plan - Assessment and Plan (Free Text) Assessment: 37 yo F with h/o fibroids presenting with abd pain. # Abd Pain, N/V: Unclear etiology. Perhaps related to new/enlarging fibroids seen on CT? Moderate amount of stool burden seen on CT which could explain some component of discomfort with reported constipation. No prior endoscopic evaluations. Plan: - Recommend MACHINE CHAIN MAKER consult for fibroids - Bowel regimen - Full Liq Diet - Will reassess in AM Pt discussed with Dr. Pedraza. Please see attestation for further recs/changes.
--- NOTE | 2018-02-17 12:39 | RAD ---
Date of service: 02/17/2018 HISTORY: abd pain COMPARISON: 11/19/2015 TECHNIQUE: Chest PA and lateral FINDINGS: LUNGS: No active pulmonary disease. PLEURA: No significant pleural effusion identified. No pneumothorax apparent. CARDIOVASCULAR: No aortic atherosclerotic calcification present. Normal cardiac size. No pulmonary vascular congestion. OSSEOUS STRUCTURES: No significant abnormalities. VISUALIZED UPPER ABDOMEN: Normal. OTHER FINDINGS: None. IMPRESSION: No active disease.
--- NOTE | 2018-02-17 13:20 | RAD ---
Date of service: 02/17/2018 HISTORY: abd pain COMPARISON: None available. FINDINGS: BOWEL: Normal. No obstruction. No free air. Mild constipation BONES: Normal. OTHER FINDINGS: None. IMPRESSION: No active disease.
[2018-02-17 13:25] VITALS: BMI 39.3
[2018-02-17] MEDS ORDERED: Pneumococcal 23-Valent Vaccine IM ONE (13:25)
[2018-02-17] MEDS ORDERED: Influenza Vaccine 60 mcg/0.5 mL SYR (4YR UP) IM ONE (13:25)
--- NOTE | 2018-02-17 19:58 | HP ---
HISTORY OF PRESENT ILLNESS: This is the second time she has been in the emergency room this week. She is having this abdominal pain with nausea, vomiting and she is very uncomfortable in the abdomen. Her white count was 12 and it went up to 13. It was originally called ileitis on a CAT scan while she was going to be put in the hospital now for nausea, vomiting and abdominal pain. She is a 47-year-old female who presents with colitis type symptoms, nausea, vomiting and abdominal pain, will not go away for last 3-4 days. PAST MEDICAL HISTORY: She has a past medical history of menometrorrhagia, uterine fibroids, colitis, Bartholin gland cyst. She is on Cipro as outpatient, did not really help her much, the pain came back. No diabetes. No hypertension. ALLERGIES: SHE HAS ALLERGIES TO IV CONTRAST. She has a history of anemia, colitis, removal of the cyst on the vocal cords, fibroid removal 2015. FAMILY HISTORY: No family history. SOCIAL HISTORY: Former smoker and drinks socially. No drugs. MEDICATIONS: She takes iron. REVIEW OF SYSTEMS: No acute vision or hearing changes. No sore throat. No chest pain or palpitations or shortness of breath or cough. She has abdominal pain, nauseousness, vomiting, intractable at times. No problems urinating. Legs are okay. Skin is okay. PHYSICAL EXAMINATION: VITAL SIGNS: She has a 98.1 temperature, 85 pulse, 18 respiratory rate, 135/72 blood pressure and 100% O2 sat on room air. GENERAL: She is fairly well appearing, little toxic, uncomfortable, some throwing up. Alert and oriented x3. HEENT: Head is atraumatic and normocephalic. Extraocular muscles are intact. Pupils reactive to light and accommodation. Throat is dry. NECK: Supple. HEART: Regular rate. Normal S1 and S2. LUNGS: Clear to auscultation bilaterally. Decreased breath sounds. ABDOMEN: Tender all over. No guarding or rebound. Decreased bowel sounds. Discomfort to the abdomen. EXTREMITIES: Have no edema. NEUROLOGIC: GCS is 15. Cranial nerves II through XII grossly intact. Normal speech. Skin is warm and dry. Alert and oriented x3. LYMPHATICS: No palpable thyroid. LABORATORY DATA: She had multiple tests done. She has a 13.7 white count going up from a few days ago when it was 12 and 10.2 hemoglobin, 32.3 hematocrit with 364 platelets. Sodium 130, potassium 4.2, BUN 60, creatinine 1.5 little bit dry, GFR is 40, sugar is 105, calcium is 9.4, magnesium 1.8, total bili is 0.8, AST is 30, ALT is 24, alk phos 85, total protein 7.6 and lipase is 47. ASSESSMENT AND PLAN: She is going to have a consult with Infectious Disease and Gastroenterology. She will be on Zofran, Toradol, IV fluids, Cipro and Flagyl. We will check her labs tomorrow and we will see how she progresses. She will be on observation level of care. I am hoping she does well today, able to discharge her tomorrow. Hoping this breaks; if not, we will make her an inpatient tomorrow, but she is here for colitis picture, intractable nausea, vomiting and abdominal pain. George Barrett DO MTDYosi
[2018-02-17] MEDS: POLYETHYLENE GLYCOL 3350 17 GM/Dose PACKET PO SCH (21:26)
[2018-02-17 21:57] VITALS: BP 111/59; PULSE 72; RESP 16; TEMP 98.2
[2018-02-18] MEDS: Sodium Chloride 0.45% 1,000 ML IV SCH (03:00)
[2018-02-18] MEDS: metroNIDAZOLE IV 500 mg/100 ml 500 MG/100 ML BAG IVPB SCH (06:31)
[2018-02-18 07:30] LABS: HEMOGLOBIN 10.1 g/dL (12.0-16.0); MEAN CELL VOLUME 74.1 fl (80.0-105.0); MEAN CORPUSCULAR HEMOGLOBIN 22.7 pg (25.0-35.0); MEAN CORPUSCULAR HGB CONC 30.7 g/dl (31.0-37.0); MEAN PLATELET VOLUME 9.2 fl (7.0-11.0); RBC 4.44 10^6/uL (3.5-6.1); RED CELL DISTRIBUTION WIDTH 16.9 % (11.5-14.5); WHITE BLOOD COUNT 10.9 10^3/uL (4.5-11.0)
[2018-02-18 07:44] LABS: ALBUMIN 3.6 g/dL (3.0-4.8); ALT/SGPT 22 U/L (7-56); AST/SGOT 30 U/L (14-36); BLOOD UREA NITROGEN 16 mg/dL (7-21); GFR NON-AFRICAN AMERICAN 57
[2018-02-18] MEDS: POLYETHYLENE GLYCOL 3350 17 GM/Dose PACKET PO SCH (09:43)
--- NOTE | 2018-02-18 12:25 | CP.PCM.PN ---
<Ignacio Aguilar - Last Filed: 02/18/18 12:21> Subjective - Date & Time of Evaluation Date of Evaluation: 02/18/18 Time of Evaluation: 08:15 - Subjective Subjective: PGY-4 GI Fellow Prog Note Pt lying in bed when seen this AM. Stated abd pain much improved overnight after 2 BMs. Tolerating diet. 5 point ROS negative other than stated above Objective - Vital Signs/Intake and Output Vital Signs (last 24 hours): Temp Pulse Resp BP Pulse Ox 98.2 F 72 16 111/59 L 98 02/17/18 21:57 02/17/18 21:57 02/17/18 21:57 02/17/18 21:57 02/17/18 21:57 Intake and Output: 02/18/18 02/18/18 06:59 18:59 Intake Total 1920 Output Total 0 Balance 1920 - Medications Medications: Current Medications Metronidazole (Flagyl) 500 mg in 100 mls @ 100 mls/hr IVPB Q8 JEAN PIERRE; Protocol Last Admin: 02/18/18 06:31 Dose: 100 mls/hr Sodium Chloride (Sodium Chloride 0.45%) 1,000 mls @ 80 mls/hr IV .[id number] [facility] Last Admin: 02/18/18 03:00 Dose: 80 mls/hr Ketorolac Tromethamine (Toradol) 30 mg IVP Q6H PRN PRN Reason: Pain, moderate (4-7) Last Admin: 02/17/18 16:32 Dose: 30 mg Ondansetron HCl (Zofran Inj) 4 mg IVP Q6H PRN PRN Reason: Nausea/Vomiting Polyethylene Glycol (Miralax) 17 gm PO DAILY [facility] Last Admin: 02/18/18 09:43 Dose: Not Given - Labs Labs: 02/18/18 07:00 02/18/18 07:00 - Constitutional Appears: Well, Non-toxic, No Acute Distress - Head Exam Head Exam: ATRAUMATIC, NORMAL INSPECTION - Eye Exam Eye Exam: absent: Conjunctival injection, Scleral icterus - ENT Exam ENT Exam: Mucous Membranes Moist, Normal External Ear Exam. absent: Mucous Membranes Dry - Respiratory Exam Respiratory Exam: NORMAL BREATHING PATTERN. absent: Accessory Muscle Use, Respiratory Distress - GI/Abdominal Exam GI & Abdominal Exam: Soft, Normal Bowel Sounds. absent: Bruit, Distended, Firm, Guarding, Rigid, Tenderness, Mass, Organomegaly, Pulsatile Mass Assessment and Plan - Assessment and Plan (Free Text) Assessment: 37 yo F with h/o fibroids presenting with abd pain. # Abd Pain, N/V: Resolved. Suspect related to constipation as symptoms resolved post-BMs overnight. Perhaps related to new/enlarging fibroids seen on CT as well. No prior endoscopic evaluations. Plan: - OK to advance to Heart Healthy Diet and DC from GI standpoint - Recommend PHYSICIAN PEDIATRICIAN f/u for fibroids - Bowel regimen going forward - Antibiotic course per primary - Recommended patient f/u with GI as outpatient given h/o colitis few years ago and now with recurrence of GI symptoms. Thank you for the consult. Will sign off. Please page if questions. Pt discussed with Dr. Pedraza. Please see attestation for further recs/changes. <Saravanan Pedraza - Last Filed: 02/18/18 16:02> Objective - Vital Signs/Intake and Output Vital Signs (last 24 hours): Temp Pulse Resp BP Pulse Ox 98.2 F 72 16 111/59 L 98 02/17/18 21:57 02/17/18 21:57 02/17/18 21:57 02/17/18 21:57 02/17/18 21:57 Intake and Output: 02/18/18 02/18/18 06:59 18:59 Intake Total 1920 Output Total 0 Balance 1920 - Labs Labs: 02/18/18 07:00 02/18/18 07:00 Attending/Attestation - Attestation I have personally seen and examined this patient.: Yes I have fully participated in the care of the patient.: Yes I have reviewed all pertinent clinical information, including history, physical exam and plan: Yes Notes (Text): 02/18/18 16:00 I have seen and examined patient with GI fellow. Abdominal pain has now resolved, she is tolerating PO diet without difficulty. She denies nausea, vomiting, fever/chills. - Advance diet as tolerated - Continue with antibiotic therapy to complete 5 day course - Suggest outpatient GI follow up given recurrent episodes of abdominal pain and prior history of unexplained colitis to assess for underlying inflammatory bowel disease. No further planned GI intervention at this time, will sign off case. Please reconsult as necessary, thank you.
--- NOTE | 2018-02-18 22:17 | CON ---
DATE: 02/18/2018 SUBJECTIVE: The patient is in bed in room 568, bed 2. CHIEF COMPLAINT: Abdominal pain x2 days' duration. HISTORY OF PRESENT ILLNESS: A 37-year-old female with a history of menometrorrhagia, uterine fibroids, colitis, Bartholin's cyst, who presents with lower abdominal pain associated with nausea and was sent home from the Emergency Room a few days ago with Cipro and now returns with continued abdominal pain and nausea. REVIEW OF SYSTEMS: The patient had low-grade fevers. No chills. No nausea or vomiting. PAST MEDICAL HISTORY: Significant for colitis, anemia, fibroids, bronchitis, migraines and GERD. PAST SURGICAL HISTORY: Significant for cyst from her vocal cord and fibroid surgery in 2014. ALLERGIES: THE PATIENT IS ALLERGIC TO IV CONTRAST. SHE STATES SHE JUST DEVELOPED THAT HERE THIS TIME. SHE DID NOT HAVE ANY ALLERGIES PRIOR TO THIS. MEDICATIONS AT HOME: The patient was on Cipro and Zofran. PHYSICAL EXAMINATION: GENERAL: The patient is in bed, no acute distress, answering questions appropriately. VITAL SIGNS: Temperature of 98, blood pressure is 118/59, respiratory rate of 18, heart rate of 72. HEENT: Unremarkable. NECK: Supple. LUNGS: Have decreased breath sounds. HEART: Normal S1, S2. ABDOMEN: Soft, nontender. No rebound, no guarding, no masses. SOCIAL HISTORY: She has had the same boyfriend for 13 years. She has never had any sexually transmitted diseases. She was born in [place]. She has two cats. LABORATORY DATA: Reveals a white count of 13,700 and hemoglobin of 10, MCV of 73, platelets of 364. Chemistries reveal the patient to have a BUN of 16, creatinine of 1.5 and the patient's creatinine in the past was 0.7. Lipase is normal. Mild elevation of glucose at 115. Urinalysis is completely unremarkable. Microbiology reveals the patient has had abdominal abscess cultures, wound culture from December which was no growth and stool cultures in 03/2015 which was negative, a urine culture which was multiple organism, contamination, and stool for C. diff in 2014 which was negative antigen and toxin. The patient had abdominal x-rays which had no active disease. The patient also had a CAT scan of the abdomen at [place] on her first ER visit on 02/15/2018 with IV contrast only, which revealed large fibroids and no other finding, and Dr. Ignacio Aguilar's note is reviewed. He writes the patient has a history of fibroids, of abdominal pain with nausea and vomiting resolved, and recommends a heart-healthy diet. Dr. Saravanan Pedraza's consultation is reviewed. Etiology unclear. ASSESSMENT AND PLAN: This is a 37-year-old morbidly obese female with a BMI of 39, with anemia, fibroids, migraine, gastroesophageal reflux disease, admitted with nausea, vomiting, abdominal pain, with no fevers, no white count, no tachycardia, no dyspnea, with gastritis, with acute kidney injury and mild dehydration. We will discontinue the Flagyl, no need for antibiotics at this point. She has Cipro at home. Leukocytosis has resolved. Keep off antibiotics and follow her. Thompson Baldwin MD
--- NOTE | 2018-02-19 05:23 | DS ---
The patient is resting comfortably in bed this morning. She ate her breakfast well. No more nausea, vomiting. No more abdominal pain. She was able to walk around the floor. She is happy, smiling, and doing better than when she came in. PHYSICAL EXAMINATION: She has a 98.2 temp, 72 pulse, 111/59 blood pressure, 16 respiratory rate, and 98% O2 sat on room air. Head is atraumatic, normocephalic. Heart is regular rate. Lungs are clear to auscultation. Abdomen is soft, nontender. Positive bowel sounds. No guarding. No rebound. No CVA tenderness. Back to normal. Extremities, no edema. MEDICATIONS: She was on Flagyl, MiraLax, IV fluids, Toradol, Zofran, and Cipro. LABORATORY DATA: She had a 10.9 white count, better than 13.7 when she came in; 10.1 hemoglobin; 32.9 hematocrit with 322 platelets. She has 137 sodium, potassium 4, BUN 16, creatinine 1.1, GFR 57, sugar 115, and calcium 9. Total bili is 0.8, AST is 30, ALT is 22, alk phos 76, total protein 7.2, and albumin 3.6. ASSESSMENT AND PLAN: Overall, she is much improved. She is feeling better. She is eating better. GI says to increase her diet, and if she does well, to discharge her home, that is what I am doing. Prescriptions were written. Lunch is ordered. If she does well, I am hoping that she can be discharged this afternoon. She will follow with Farm Equipment Engineer for her fibroids. She is going to be discharged home this afternoon if she eats well for lunch. She will follow up in the office in a week. She has her medications and prescriptions were written. George Barrett DO
== END 2018-02-18 14:01 | disposition home or self-care (01) ==
LOC: ED 07:25 → ERH 08:50 → 5RNO 10:19
PROVIDERS: ADMIT Family Medicine; ATTEND Family Medicine
DX: K52.9 Noninfective gastroenteritis and colitis, unspecified (principal); D25.9 Leiomyoma of uterus, unspecified; D64.9 Anemia, unspecified; E66.01 Morbid (severe) obesity due to excess calories; Z68.39 Body mass index [BMI] 39.0-39.9, adult; G43.909 Migraine, unspecified, not intractable, without status migrainosus; K21.9 Gastro-esophageal reflux disease without esophagitis; K59.00 Constipation, unspecified; Z87.891 Personal history of nicotine dependence; Z91.041 Radiographic dye allergy status; K29.70 Gastritis, unspecified, without bleeding; N17.9 Acute kidney failure, unspecified; E86.0 Dehydration
CPT/HCPCS: 36415; 71046; 74019; 80053; 81003; 83690; 83735; 85025; 85027; 96361; 96365; 96366; 96375; 96376; 99284; G0378; J0744; J1885; J2405; J7030

== ENCOUNTER 2018-04-26 05:57 | Emergency (ER) | payer SELFPAY ==
[2018-04-26 06:46] VITALS: RESP 18; TEMP 98.8; BMI 35.6
--- NOTE | 2018-04-26 07:45 | ED PDOC ---
Arrival/HPI - General Chief Complaint: Abnormal Skin Integrity Time Seen by Provider: 04/26/18 07:31 Historian: Patient - History of Present Illness Time/Duration: Other (Approximately 6 weeks) Symptom Onset: Gradual Symptom Course: Worsening Severity Level: Moderate Associated Symptoms (Text): 04/26/18 07:42 patient complains of approximately a 6 week of a worsening right sided Bartholin's cyst. She has had multiple previous episodes. She has been unable to see the SHELL SORTER Past Medical History - Past History Past History: Non-Contributing - Infectious Disease Hx of Infectious Diseases: None - Tetanus Immunization Tetanus Immunization: Unknown - Cardiac Hx Cardiac Disorders: No - Pulmonary Hx Respiratory Disorders: No - Neurological Hx Neurological Disorder: No - HEENT Hx HEENT Disorder: No - Renal Hx Renal Disorder: No - Endocrine/Metabolic Hx Endocrine Disorders: No - Hematological/Oncological Hx Blood Disorders: Yes Hx Anemia: Yes - Integumentary Hx Dermatological Disorder: No - Musculoskeletal/Rheumatological Hx Musculoskeletal Disorders: No - Gastrointestinal Hx Gastrointestinal Disorders: Yes Hx Colitis: Yes - Genitourinary/Gynecological Hx Genitourinary Disorders: No - Psychiatric Hx Psychophysiologic Disorder: No Hx Substance Use: No - Surgical History Other/Comment: REMOVAL OF CYST ON THE VOCAL CORDS. FIBROID REMOVAL 11/2015 - Anesthesia Hx Anesthesia: Yes Hx Anesthesia Reactions: No Hx Malignant Hyperthermia: No - Suicidal Assessment Feels Threatened In Home Enviroment: No Family/Social History - Physician Review Nursing Documentation Reviewed: Yes Family/Social History: Unknown Family HX Smoking Status: Former Smoker Hx Alcohol Use: Yes (SOCIALLY) Hx Substance Use: No Hx Substance Use Treatment: No Allergies/Home Meds Allergies/Adverse Reactions: Allergies IV contrast Allergy (Uncoded 02/17/18 11:55) RASH Home Medications: Home Meds Medication Instructions Recorded Confirmed Ferrous Sulfate [Ferosul] 325 mg PO QOTHERDAY 11/08/17 02/17/18 Review of Systems - Physician Review All systems were reviewed & negative as marked: Yes Physical Exam Vital Signs Temp Pulse Resp BP Pulse Ox 04/26/18 06:45 98.8 F 73 18 109/57 L 98 Temperature: Afebrile Blood Pressure: Normal Pulse: Regular Respiratory Rate: Normal Appearance: Positive for: Well-Appearing, Non-Toxic, Uncomfortable Pain Distress: Mild Mental Status: Positive for: Alert and Oriented X 3 - Systems Exam Abdomen: No: Tenderness, Distention, Peritoneal Signs Genitourinary/Pelvic Exam: Present: Normal External Genitalia, Other ( approximately golf ball sized right sided Bartholin cyst). No: Vaginal Discharge, Vaginal Bleeding, Vaginal Lesions Medical Decision Making ED Course and Treatment: 04/26/18 07:44 discussed with patient that she will need to see the SHELL SORTER for marsdavidia lization. patient will be treated for now with warm sitz baths and pain medication. Patient reports she has been unable to see the SHELL SORTER because of billing issues. Disposition/Present on Arrival - Present on Arrival Any Indicators Present on Arrival: No History of DVT/PE: No History of Uncontrolled Diabetes: No Urinary Catheter: No History of Decub. Ulcer: No History Surgical Site Infection Following: None - Disposition Have Diagnosis and Disposition been Completed?: Yes Diagnosis: Bartholin's cyst Disposition: HOME/ ROUTINE Disposition Time: 07:45 Patient Plan: Discharge Condition: GOOD Discharge Instructions (ExitCare): Bartholin's Gland Cyst Additional Instructions: warm sitz baths. Follow-up with SHELL SORTER. follow up in ER as needed. Prescriptions: oxyCODONE/Acetaminophen [Percocet 5/325 mg Tab] 1 ea PO Q6 #15 tab Ondansetron ODT [Zofran ODT] 4 mg PO Q6 #20 odt Forms: [employer] ([place]ani), WORK NOTE
[2018-04-26 08:08] VITALS: BP 110/77; PULSE 72; O2SAT 99
== END 2018-04-26 08:08 | disposition home or self-care (01) ==
LOC: ED 05:57
DX: N75.0 Cyst of Bartholin's gland (principal)